=== PATIENT | female | born 1955 | race Caucasian/White ===

== ENCOUNTER 2017-04-13 08:04 | Day surgery (SDC) | payer OTHER ==
[~2017-04-13] VITALS: Ht 162.6 cm; Wt 98.7 kg
[2017-04-13] MEDS ORDERED: LISINOPRIL (09:33)
[2017-04-13] MEDS ORDERED: NORCO (09:33)
[2017-04-13 09:35] VITALS: Ht 162.6 cm; Wt 98.7 kg
[2017-04-13] MEDS ORDERED: LIDOCAINE 2% (SDV) 5 ML INJ ONE (09:49)
[2017-04-13] MEDS ORDERED: PROPOFOL 40 ML ONE (09:49)
[2017-04-13] MEDS ORDERED: SULFAMETHOXAZOLE (09:54)
[2017-04-13] MEDS ORDERED: TRIAMCINOLONE (09:54)
[2017-04-13] MEDS ORDERED: CEPHALEXIN (09:54)
[2017-04-13 10:35] VITALS: BP 145/82; PULSE 79; RESP 20
--- NOTE | 2017-04-13 11:13 | GILP ---
DATE OF PROCEDURE: 04/13/2017 PROCEDURE: Colonoscopy. PREOPERATIVE DIAGNOSIS: Screening colonoscopy to rule out colon polyps. POSTOPERATIVE DIAGNOSES: Moderate degree of diverticulosis noted all along the colon. No polyps, n o carcinoma noted. Minimal internal and minimal external hemorrhoids OF grade I noted. DESCRIPTION OF PROCEDURE: After informed written consent was obtained, the patient was asked to lie on the left lateral side. Intravenous anesthesia was given by SALES AND DISTRIBUTION CLERK. When the patient became somno lent, the Olympus video colonoscope was introduced into the rectum and scope was advanced all the wa y to the cecum. Entire colon was examined. Moderate degree of diverticulosis noted. There is no e vidence of diverticulitis. No evidence of neoplasm noted. Endoscope at this time was withdrawn fro m the cecum. On the way out, no new abnormalities detected except on retroflexion, minimal internal hemorrhoids and minimal external hemorrhoids were noted and the procedure was terminated. PLAN: Recommend repeat colonoscopy in 10 years. Dictated By: EDILBERTO WATSON/TARYN Conf#: [id number] DID#: [id number] CC: [facility]; EDILBERTO CONNER MD;*End*
[2017-04-13 11:20] VITALS: BP 130/72; RESP 20
== END 2017-04-13 11:46 | disposition home or self-care (01) ==
LOC: GIL 08:04
PROVIDERS: ATTEND Internal Medicine Gastroenterology
DX: Z12.11 Encounter for screening for malignant neoplasm of colon (principal); K57.90 Diverticulosis of intestine, part unspecified, without perforation or abscess without bleeding; K64.8 Other hemorrhoids; K64.4 Residual hemorrhoidal skin tags; I10 Essential (primary) hypertension; E66.9 Obesity, unspecified; Z68.37 Body mass index [BMI] 37.0-37.9, adult
CPT/HCPCS: 45378; Z7610

== ENCOUNTER 2017-06-02 12:53 | Inpatient (IN) | payer OTHER ==
[~2017-06-02] VITALS: Ht 162.6 cm; Wt 100.0 kg
[~2017-06-02 12:53] MED LIST: CEPHALEXIN; LISINOPRIL; NORCO; SULFAMETHOXAZOLE; TRIAMCINOLONE
[2017-06-02 12:54] VITALS: Ht 162.6 cm; Wt 100.0 kg
[2017-06-02] MEDS ORDERED: ASPIRIN 325 MG TAB PO STA (15:18)
[2017-06-02] MEDS ORDERED: NITROGLYCERIN 2% 1 GM OINT PKT TD STA (15:18)
[2017-06-02 15:33] LABS: BASOPHIL # 0.1 10^3/ul (0.0-0.1); BASOPHILS % 0.9 % (0.0-2.0); EOSINOPHILS # 0.3 10^3/ul (0.0-0.5); EOSINOPHILS % 3.9 % (0.0-7.0); HEMATOCRIT 44.8 % (37.0-47.0); HEMOGLOBIN 14.8 g/dl (12.0-16.0); LYMPHOCYTES # 2.4 10^3/ul (0.8-2.9); LYMPHOCYTES % 31.3 % (15.0-51.0); MEAN CORPUSCULAR HEMOGLOBIN 27.9 pg (29.0-33.0); MEAN CORPUSCULAR VOLUME 84.5 fl (82.0-101.0); MEAN PLATELET VOLUME 11.1 fl (7.4-10.4); MONOCYTE # 0.7 10^3/ul (0.3-0.9); MONOCYTES % 8.9 % (0.0-11.0); NEUTROPHIL # 4.3 10^3/ul (1.6-7.5); NEUTROPHILS % 54.9 % (39.0-77.0); PLATELET COUNT 243 10^3/UL (140-415); RED CELL DISTRIBUTION WIDTH 12.8 % (11.5-14.5); WHITE BLOOD COUNT 7.8 10^3/ul (4.8-10.8)
[2017-06-02 15:54] LABS: INR 0.93; PROTIME 12.5 Sec (12.2-14.2)
[2017-06-02 15:55] LABS: PARTIAL THROMBOPLASTIN TIME 29.6 Sec (25.0-35.0)
[2017-06-02 15:56] LABS: ANION GAP 19 (8-16); BLOOD UREA NITROGEN 13 mg/dl (7-20); CALCIUM 9.1 mg/dl (8.4-10.2); CARBON DIOXIDE 30 mmol/L (21-31); CHLORIDE 99 mmol/L (97-110); GLUCOSE 114 mg/dl (70-220); POTASSIUM 3.9 mmol/L (3.5-5.1); SODIUM 144 mmol/L (135-144)
--- NOTE | 2017-06-02 16:09 | ERA ---
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 The patient presents with chest pain for approximately 1 week. She describes it as left-sided. She has difficulty characterizing the pain but states that it feels like a heavy sensation. She first noted it during exercise class and towards the end of the class she started to have this chest pain. It lasted less than 1 hour. The patient again had symptoms just earlier today while she was working. 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 She states that it was not related to movement of her extremities her chest but it was related to exertion. She has 2 out of 10 pain currently. She denies any mid back pain, no pleuritic pain, no fevers or chills. She has not had cardiac workup in the past. ROS All systems reviewed and are negative except as per history of present illness. Medications Home Meds Reported Medications Lisinopril* (Lisinopril*) 10 Mg Tablet, 10 MG PO DAILY, #30 TAB 06/02/17 Discontinued Reported Medications [Cephalexin] No Conflict Check 04/13/17 [Triamcinolone] No Conflict Check 04/13/17 [Sulfamethoxazole] No Conflict Check 04/13/17 [[place]] No Conflict Check 04/13/17 [Lisinopril] No Conflict Check 04/13/17 Allergies Allergies: Coded Allergies: No Known Allergy (Unverified , 06/02/17) PMhx/Soc History of Surgery: Yes (HYSTERECTOMY) Anesthesia Reaction: Yes Hx Neurological Disorder: No Hx Respiratory Disorders: Yes (ASTHMA) Hx Cardiac Disorders: Yes (HTN) Hx Psychiatric Problems: No Hx Miscellaneous Medical Probl: No Hx Alcohol Use: No Hx Substance Use: No Hx Tobacco Use: No Smoking Status: Never smoker FmHx Family History: No diabetes Physical Exam Vitals Vital Signs Date Time Temp Pulse Resp B/P Pulse Ox O2 Delivery O2 Flow Rate FiO2 06/02/17 16:18 68 12 119/74 99 Room Air 06/02/17 12:54 98.6 74 20 147/109 97 Physical Exam General: Well developed, well nourished, no acute distress Head: Normocephalic, atraumatic. Eyes: Pupils equally reactive, EOM intact ENT: Moist mucous membranes Neck: Supple, no lymphadenopathy Respiratory: Lungs clear bilaterally, no distress Cardiovascular: RRR, no murmurs, rubs, or gallops Abdominal: Soft, non-tender, non-distended, no peritoneal signs : Deferred MSK: No edema, no unilateral swelling, 5/5 strength Neurologic: Alert and oriented, moving all extremities, normal speech, no focal weakness, no cerebellar signs Skin: No rash Psych: Normal mood Result Diagram: 06/02/17 1515 06/02/17 1515 Results 24 hrs Laboratory Tests Test 06/02/17 15:15 White Blood Count 7.810^3/ul Red Blood Count 5.3010^6/ul Hemoglobin 14.8g/dl Hematocrit 44.8% Mean Corpuscular Volume 84.5fl Mean Corpuscular Hemoglobin 27.9pg Mean Corpuscular Hemoglobin Concent 33.0g/dl Red Cell Distribution Width 12.8% Platelet Count 59973^3/UL Mean Platelet Volume 11.1fl Neutrophils % 54.9% Lymphocytes % 31.3% Monocytes % 8.9% Eosinophils % 3.9% Basophils % 0.9% Nucleated Red Blood Cells % 0.0/100WBC Neutrophils # 4.310^3/ul Lymphocytes # 2.410^3/ul Monocytes # 0.710^3/ul Eosinophils # 0.310^3/ul Basophils # 0.110^3/ul Nucleated Red Blood Cells # 0.010^3/ul Prothrombin Time 12.5Sec Prothrombin Time Ratio 1.0 INR International Normalized Ratio 0.93 Activated Partial Thromboplast Time 29.6Sec Sodium Level 144mmol/L Potassium Level 3.9mmol/L Chloride Level 99mmol/L Carbon Dioxide Level 30mmol/L Anion Gap 19 Blood Urea Nitrogen 13mg/dl Creatinine 0.70mg/dl Glucose Level 114mg/dl Calcium Level 9.1mg/dl Troponin I < 0.012ng/ml Current Medications Medications (Trade) Dose Ordered Sig/Jeremi Route PRN Reason Start Time Stop Time Status Last Admin Dose Admin Aspirin (Aspirin) 325 mg ONCE STAT PO 06/02/17 15:18 06/02/17 15:20 DC 06/02/17 15:23 Nitroglycerin (Nitroglycerin 2% Oint) 1 inch ONCE STAT TD 06/02/17 15:18 8/12/17 15:20 DC 06/02/17 15:23 Ondansetron HCl (Zofran Inj) 4 mg ER BRIDGE PRN IV NAUSEA AND/OR VOMITING 06/02/17 17:00 06/03/17 16:59 Acetaminophen (Tylenol Tab) 650 mg ER BRIDGE PRN PO MILD PAIN/FEVER 06/02/17 17:00 06/03/17 16:59 IV Flush (NS 3 ml) 3 ml PER PROTOCOL IV 06/02/17 18:00 UNV Acetaminophen (Tylenol Tab) 650 mg Q6H PRN PO PAIN LEVEL 1-3 OR FEVER 06/02/17 18:00 UNV Acetaminophen/ Hydrocodone Bitart ([place] (5/325)) 1 tab Q6H PRN PO PAIN LEVEL 4-6 06/02/17 18:00 UNV Morphine Sulfate (morphine) 2 mg Q4H PRN IV PAIN LEVEL 7-10 06/02/17 18:00 UNV Bisacodyl (Dulcolax) 5 mg DAILY PRN PO CONSTIPATION 06/02/17 18:00 UNV Famotidine (Pepcid) 20 mg Q12 PO 06/02/17 21:00 UNV Enoxaparin Sodium (Lovenox) 40 mg DAILY SC 06/03/17 09:00 UNV Lisinopril (Zestril) 10 mg DAILY PO 06/03/17 09:00 UNV Hydralazine HCl (Apresoline) 10 mg Q6H PRN IV SBP>160 06/02/17 18:00 UNV Procedures/MDM EKG, MONITORS, & DIAGNOSTIC IMAGING: EKG: I reviewed and interpreted a 12-lead EKG. Rhythm: Normal sinus rhythm Ectopy: None Intervals: No abnormalities ST segments: No elevations or depressions T waves: No contiguous inversions Repeat EKG: EKG: I reviewed and interpreted a 12-lead EKG. Rhythm: Normal sinus rhythm Ectopy: None Intervals: No abnormalities ST segments: No elevations or depressions T waves: No contiguous inversions Chest x-ray: I reviewed and interpreted a 1 view of the chest Mediastinum: No enlargement Cardiac silhouette: No cardiomegaly Airspace: Clear lung rahman bilaterally without evidence of pneumothorax Bones: No evidence of fracture LAB INTERPRETATION: Negative troponin MEDICAL DECISION MAKING: The patient's history, physical exam and clinical presentation is concerning for possible cardiogenic etiology and acute coronary syndrome. Based on the patient's clinical exam and history and risk factors, I have a much lower clinical concern for pulmonary embolism, acute aortic dissection, pneumothorax, pneumonia, cardiac tamponade HEART Score: 4 MACE Rate: 16.6% Shared Decision Making: We had a conversation regarding risk stratification, MACE rate, and the risks, benefits, alternatives of disposition planning options. Disposition planning: Given that the patient has exertional symptoms, has never been tested before and is a 61-year-old female I would strongly recommend hospitalization to rule out ACS. The patient is agreeable. ER COURSE: Aspirin and nitro provided. Patient is chest pain-free. I kept the patient and/or family informed of laboratory and diagnostic imaging results throughout the emergency room course. DISPOSITION PLAN: Telemetry admission for management of chest pain to rule out acute coronary syndrome, risk stratify the patient and evaluate the need for provocative testing versus angiogram. CONSULTATION: Accepting care team and consultations: I discussed the current laboratory data, diagnostic imaging and emergency care provided. Admitting team: Dr. Cohen Admitting team indication: Insurance directed Departure Diagnosis: Primary Impression: Chest pain Qualified Code: R07.9 - Chest pain, unspecified type Condition: Stable KUMAR SILVA MD Jun 02, 2017 16:09
[2017-06-02 16:10] LABS: TROPONIN-I < 0.012 ng/ml (0.00-0.12)
[2017-06-02] MEDS ORDERED: ACETAMINOPHEN 325 MG TAB PO PRN ×2 (17:00→18:00)
[2017-06-02] MEDS ORDERED: ONDANSETRON 4 MG INJ IV PRN (17:00)
[2017-06-02] MEDS ORDERED: LISI10TA2 PO (17:16)
--- NOTE | 2017-06-02 17:18 | RADRPT ---
PROCEDURE: Portable chest x-ray. CLINICAL INDICATION: 61-year-old female. Chest pain.. TECHNIQUE: Portable AP view of the chest. COMPARISON: None. FINDINGS: Cardiomediastinal contours are normal. Lungs are clear.. Negative for pleural effusion or pneumothorax.. No acute bony abnormality. IMPRESSION: Negative for evidence of acute chest process. RPTAT: HCTS Physician Tyrell Date Time Electronically viewed and signed by Carlitos Macias Physician on 06/02/2017 17:18 CS/
--- NOTE | 2017-06-02 17:50 | HP ---
Date/Time of Note Date/Time of Note DATE: 06/02/17 TIME: 17:46 Assessment/Plan VTE Prophylaxis VTE Prophylaxis Intervention: LMWH Lines/Catheters IV [facility]from [facility] [place] Assessment/Plan Chief Complaint/Hosp Course 1. Chest pain. To rule out acute coronary syndrome. Serial troponins will be obtained. A 2D cardiogram will be obtained to evaluate the left ventricular ejection fraction to evaluate for any wall motion abnormalities. A cardiology consult will be obtained. The patient will be started on aspirin. 2. Essential hypertension. The patient will be resumed on her home antihypertensives. The patient will also be started on PRN antihypertensives for any systolic blood pressure readings greater than 160 mmHg. 3. Obesity. BMI of 37.8 kg/m. Weight reduction will be advised. A fasting lipid panel and hemoglobin A1c will be obtained. Plan: The patient will be admitted to inpatient telemetry floor. The patient will be started on a low-cholesterol diet. The patient will be started on DVT prophylaxis and gastrointestinal prophylaxis. The patient will remain a full code. Activities will be as tolerated. The rest of the patient's management will be based on the clinical course and the results of diagnostic studies. Based on the patient's clinical presentation, she most probably requires at least one midnight's stay for further management and evaluation of her clinical presentation. The case and management of this patient was fully discussed with . Problems: HPI/ROS Admit Date/Time Admit Date/Time Hx of Present Illness Reason for admission: Chest pain Consultants 1. Tae Carmen MD, Cardiology. This is a 61-year-old female with past medical history of essential hypertension and obesity who came to the emergency room with chief complaint of left-sided chest pain with radiation to the left arm that has been going on for the past 1 week. Patient verbalized the pain as heaviness. The patient verbalized that the pain started after she had a Zohreh class at a local gym. The patient denied any obvious injuries during the Zohreh class. The patient denied any associated nausea, vomiting, or diaphoresis. The patient denied any dizziness or headache. Patient denied any dyspnea. The patient denied any fevers or chills. In the emergency room, patient was treated with oral aspirin and transdermal nitroglycerin. ROS Constitutional: no complaints Eyes: no complaints ENT: no complaints Respiratory: no complaints Cardiovascular: chest pain Gastrointestinal: no complaints Genitourinary: no complaints Musculoskeletal: no complaints Skin: no complaints Neurologic: no complaints Endocrine: no complaints Lymphatic: no complaints Psychological: no complaints Immunologic: no complaints PMH/Family/Social Past Medical History Medical History: hypertension Past Surgical History Past Surgical Hx: other (Hysterectomy) Family History Significant Family History: heart disease (Mother of heart attack when she was 65 years old) Social History Alcohol Use: none Smoking Status: Never smoker Drug Use: none Exam/Review of Systems Vital Signs Vitals Vital Signs Date Time Temp Pulse Resp B/P Pulse Ox O2 Delivery O2 Flow Rate FiO2 06/02/17 16:18 68 12 119/74 99 Room Air 06/02/17 12:54 98.6 Exam Exam General: Obese 61 year-old female lying in bed in no apparent distress. HEENT: Normocephalic, atraumatic. Eyes: Anicteric sclerae, conjunctivae clear. ENT: Nasal septum midline, oral mucosa moist. Neck supple, no JVD noticed. Respiratory: Bilaterally clear breath sounds. No use of accessory muscles of respiration. No adventitious breath sounds. Cardiovascular: S1, S2 heard. No murmurs or gallops. Abdomen: Soft, nontender, and nondistended. Bowel sounds positive in all 4 quadrants. Genitourinary: Deferred. Extremities: No cyanosis, no clubbing. Bilateral lower extremity obese. No pitting edema. Peripheral pulses palpable. Neurologic: Cranial nerves II through XII grossly intact. The patient is awake, alert, and oriented. Skin: Normal skin turgor. No skin rashes. Labs Result Diagram: 06/02/17 1515 06/02/17 1515 Medications Medications Current Medications Acetaminophen (Tylenol Tab) 650 mg Q6H PRN PO PAIN LEVEL 1-3 OR FEVER; Start at 18:00; Status UNV Acetaminophen/ Hydrocodone Bitart ([place] (5/325)) 1 tab Q6H PRN PO PAIN LEVEL 4 -6; Start 06/02/17 at 18:00; Status UNV Morphine Sulfate (morphine) 2 mg Q4H PRN IV PAIN LEVEL 7-10; Start 06/02/17 at 18:00; Status UNV Bisacodyl (Dulcolax) 5 mg DAILY PRN PO CONSTIPATION; Start 06/02/17 at 18:00; Status UNV Famotidine (Pepcid) 20 mg Q12 PO ; Start 06/02/17 at 21:00; Status UNV Enoxaparin Sodium (Lovenox) 40 mg DAILY SC ; Start 06/03/17 at 09:00; Status UNV Lisinopril (Zestril) 10 mg DAILY PO ; Start 06/03/17 at 09:00; Status UNV Hydralazine HCl (Apresoline) 10 mg Q6H PRN IV SBP>160; Start 06/02/17 at 18:00 ; Status UNV Procedures Procedures CXR No acute cardiopulmonary findings. 12 Lead EKG Normal sinus rhythm. Right bundle branch block. JUDITH BENNETT NP Jun 02, 2017 17:50
[2017-06-02] MEDS ORDERED: NACL 0.9% 3 ML SYG IV SCH (18:00)
[2017-06-02] MEDS ORDERED: morphine 2 MG INJ IV PRN (18:00)
[2017-06-02] MEDS ORDERED: hydrALAzine 20 MG INJ IV PRN (18:00)
[2017-06-02] MEDS ORDERED: BISACODYL (EC) 5 MG TAB PO PRN (18:00)
[2017-06-02] MEDS ORDERED: HYDROCODONE/APAP (5/325) TAB PO PRN (18:00)
[2017-06-02 20:51] VITALS: BP_SYST 138; BP_SYST 166; BP_DIAS 65; BP_DIAS 77; RESP 16
[2017-06-02 20:52] VITALS: PULSE 66
[2017-06-02] MEDS: FAMOTIDINE 20 MG TAB PO SCH (21:04)
[2017-06-02 22:45] LABS: CREATINE KINASE 122 IU/L (23-200)
[2017-06-02 22:56] LABS: CK-MB 1.81 ng/ml (0.0-2.4); TROPONIN-I < 0.012 ng/ml (0.00-0.12)
[2017-06-02 23:12] VITALS: TEMP 98.6
[2017-06-03] VITALS (9 sets, daily range): BP systolic 127–154; BP diastolic 13–72; PULSE 63–78; RESP 17–19
[2017-06-03 03:16] LABS: BASOPHIL # 0.1 10^3/ul (0.0-0.1); BASOPHILS % 0.6 % (0.0-2.0); EOSINOPHILS # 0.2 10^3/ul (0.0-0.5); EOSINOPHILS % 2.4 % (0.0-7.0); HEMATOCRIT 42.8 % (37.0-47.0); HEMOGLOBIN 13.8 g/dl (12.0-16.0); LYMPHOCYTES # 2.4 10^3/ul (0.8-2.9); LYMPHOCYTES % 24.8 % (15.0-51.0); MEAN CORPUSCULAR HEMOGLOBIN 27.2 pg (29.0-33.0); MEAN CORPUSCULAR HGB CONC 32.2 g/dl (32.0-37.0); MEAN CORPUSCULAR VOLUME 84.3 fl (82.0-101.0); MONOCYTE # 0.7 10^3/ul (0.3-0.9); MONOCYTES % 7.2 % (0.0-11.0); NEUTROPHIL # 6.3 10^3/ul (1.6-7.5); NEUTROPHILS % 64.8 % (39.0-77.0); PLATELET COUNT 221 10^3/UL (140-415); RED BLOOD COUNT 5.08 10^6/ul (4.20-5.40); WHITE BLOOD COUNT 9.7 10^3/ul (4.8-10.8)
[2017-06-03 03:35] LABS: CREATINE KINASE 118 IU/L (23-200)
[2017-06-03 03:37] LABS: CHOLESTEROL 183 mg/dl (100-200); HDL CHOLESTEROL 45 mg/dl (35-98); MAGNESIUM 2.3 mg/dl (1.7-2.5); PHOSPHORUS 3.6 mg/dl (2.5-4.9); TRIGLYCERIDES 111 mg/dl (0-149)
[2017-06-03 03:42] LABS: ALBUMIN 4.4 g/dl (3.3-4.9); ALBUMIN/GLOBULIN RATIO 1.37; BILIRUBIN,INDIRECT 0.7 mg/dl (0-1.1); BILIRUBIN,TOTAL 0.7 mg/dl (0.2-1.3); CREATININE 0.77 mg/dl (0.44-1.00); POTASSIUM 4.6 mmol/L (3.5-5.1); TOTAL PROTEIN 7.6 g/dl (6.1-8.1)
[2017-06-03 03:49] LABS: CK-MB 1.82 ng/ml (0.0-2.4)
[2017-06-03 03:58] LABS: TROPONIN-I < 0.012 ng/ml (0.00-0.12)
[2017-06-03] MEDS: FAMOTIDINE 20 MG TAB PO SCH (08:38)
[2017-06-03] MEDS ORDERED: ASPIRIN (EC) 81 MG TAB PO SCH (09:00)
[2017-06-03] MEDS ORDERED: ENOXAPARIN 40 MG/0.4 ML SYG SC SCH (09:00)
[2017-06-03] MEDS ORDERED: LISINOPRIL 10 MG TAB PO SCH (09:00)
--- NOTE | 2017-06-03 10:20 | CONS ---
Date/Time of Note Date/Time of Note DATE: 06/03/17 TIME: 10:18 Assessment/Plan Assessment/Plan Additional Assessment/Plan Atypical chest pain Hypertension Obesity she has been ruled out for ACS with serial negative troponin's chest pain free Increased Lisinopril Continue Pepcid Continue Lovenox echo pending Consultation Date/Type/Reason Admit Date/Time Jun 02, 2017 at 16:52 Initial Consult Date Exam/Review of Systems Vital Signs Vitals Vital Signs Date Time Temp Pulse Resp B/P Pulse Ox O2 Delivery O2 Flow Rate FiO2 06/03/17 08:06 63 06/03/17 07:26 97.7 18 140/72 96 06/02/17 23:12 Room Air Exam Constitutional: alert, oriented, well developed Neck: non-tender, supple Respiratory: clear to auscultation Cardiovascular: regular rate and rhythm Gastrointestinal: nl liver, spleen, non-tender, soft Extremities: normal pulses Results Result Diagram: 06/03/17 0306 06/03/17 0306 Results 24 hrs Laboratory Tests Test 06/02/17 15:15 06/02/17 21:45 06/03/17 03:06 White Blood Count 7.8 9.7 # Red Blood Count 5.30 5.08 Hemoglobin 14.8 13.8 Hematocrit 44.8 42.8 Mean Corpuscular Volume 84.5 84.3 Mean Corpuscular Hemoglobin 27.9 L 27.2 L Mean Corpuscular Hemoglobin Concent 33.0 32.2 Red Cell Distribution Width 12.8 13.0 Platelet Count 243 221 Mean Platelet Volume 11.1 H 11.0 H Neutrophils % 54.9 64.8 Lymphocytes % 31.3 24.8 Monocytes % 8.9 7.2 Eosinophils % 3.9 2.4 Basophils % 0.9 0.6 Nucleated Red Blood Cells % 0.0 0.0 Neutrophils # 4.3 6.3 Lymphocytes # 2.4 2.4 Monocytes # 0.7 0.7 Eosinophils # 0.3 0.2 Basophils # 0.1 0.1 Nucleated Red Blood Cells # 0.0 0.0 Prothrombin Time 12.5 Prothrombin Time Ratio 1.0 INR International Normalized Ratio 0.93 Activated Partial Thromboplast Time 29.6 Sodium Level 144 140 Potassium Level 3.9 4.6 Chloride Level 99 104 Carbon Dioxide Level 30 28 Anion Gap 19 H 13 Blood Urea Nitrogen 13 13 Creatinine 0.70 0.77 Glucose Level 114 99 Hemoglobin A1c 5.7 Calcium Level 9.1 9.0 Troponin I < 0.012 < 0.012 < 0.012 Thyroid Stimulating Hormone (TSH) 1.600 Free Thyroxine 0.88 Creatine Kinase 122 118 Creatine Kinase Index 1.5 1.5 Creatinine Kinase MB (Mass) 1.81 1.82 Phosphorus Level 3.6 Magnesium Level 2.3 Total Bilirubin 0.7 Direct Bilirubin 0.00 Indirect Bilirubin 0.7 Aspartate Amino Transf (AST/SGOT) 24 Alanine Aminotransferase (ALT/SGPT) 42 Alkaline Phosphatase 62 Total Protein 7.6 Albumin 4.4 Globulin 3.20 Albumin/Globulin Ratio 1.37 Triglycerides Level 111 Cholesterol Level 183 LDL Cholesterol, Calculated 116 HDL Cholesterol 45 Cholesterol/HDL Ratio 4.0 Medications Medications Current Medications Acetaminophen (Tylenol Tab) 650 mg Q6H PRN PO PAIN LEVEL 1-3 OR FEVER; Start at 18:00 Acetaminophen/ Hydrocodone Bitart ([place] (5/325)) 1 tab Q6H PRN PO PAIN LEVEL 4 -6; Start 06/02/17 at 18:00 Morphine Sulfate (morphine) 2 mg Q4H PRN IV PAIN LEVEL 7-10; Start 06/02/17 at 18:00 Bisacodyl (Dulcolax) 5 mg DAILY PRN PO CONSTIPATION; Start 06/02/17 at 18:00 Famotidine (Pepcid) 20 mg Q12 PO Last administered on 06/03/17 08:38; Admin Dose 20 MG; Start 06/02/17 at 21:00 Enoxaparin Sodium (Lovenox) 40 mg DAILY SC Last administered on 06/03/17 08:45 ; Admin Dose 40 MG; Start 06/03/17 at 09:00 Lisinopril (Zestril) 10 mg DAILY PO Last administered on 06/03/17 08:39; Admin Dose 10 MG; Start 06/03/17 at 09:00 Hydralazine HCl (Apresoline) 10 mg Q6H PRN IV SBP>160; Start 06/02/17 at 18:00 Aspirin (Halfprin) 81 mg DAILY PO Last administered on 06/03/17 08:38; Admin Dose 81 MG; Start 06/03/17 at 09:00 YANN NAVA M.D. Jun 03, 2017 10:20
--- NOTE | 2017-06-03 11:14 | CONS ---
DATE OF ADMISSION: 06/02/2017 DATE OF CONSULTATION: 06/03/2017 REASON FOR CONSULTATION: Chest pain. HISTORY OF PRESENT ILLNESS: Patient is a 61-year-old female who comes in with chest pain on and off for the past 1 week, relieved with Advil. Denies shortness of breath, dizziness, syncope or palpitations. Denies nausea, vomiting. Denies fever, chills or rigors. She has no prior history of coronary artery disease or myocardial infarction. Denies history of dyslipidemia or diabetes mellitus. PAST MEDICAL HISTORY: 1. Hypertension. 2. Obesity. SOCIAL HISTORY: No smoking, alcohol, or recreational drugs. ALLERGIES: NONE. CURRENT MEDICATIONS: Lovenox, lisinopril, aspirin, Pepcid. REVIEW OF SYSTEMS: Unremarkable except as mentioned in HPI. PHYSICAL EXAMINATION: VITAL SIGNS: Temperature is 98.1, heart rate of 58, blood pressure 138/65, mmHg, breathing at 16, saturating 95 percent. GENERAL: Patient awake, alert, in no apparent distress. NECK: No JVD or carotid bruit. HEART: Regular rate and rhythm. No murmur, rub, or gallop. CHEST: Clear to auscultation. ABDOMEN: Soft. Bowel sounds are present. There is no organomegaly. EXTREMITIES: No pedal edema. Pedal pulses are felt bilaterally. LABORATORY: Sodium 144, potassium 3.9, chloride 99, CO2 30, BUN of 13, creatinine 0.7. Troponin first set is 0.01. TSH 1.6, free T4 0.88. Review of 12 lead EKG shows normal sinus rhythm with ventricular rate of 60 beats per minute with normal AL, normal QRS and normal QT intervals, with incomplete right bundle branch block. Chest x-ray shows no congestion or infiltrate. ASSESSMENT AND PLAN: A 61-year-old female with atypical with: 1. Atypical chest pain. 2. Hypertension. 3. Diabetes mellitus. Review of 12 lead EKG shows normal sinus rhythm with no acute ST- T wave changes. First set of troponin has been negative. Blood pressure is controlled. Chest pain is most likely musculoskeletal in nature since it is relieved by taking Advil. RECOMMENDATION: 1. Trend troponins. 2. Echocardiogram to assess for systolic function and rule out for pulmonary hypertension, pericardial disease. 3. Continue lisinopril. 4. Continue GI and DVT prophylaxis. Dictated By: Tae Carmen MD /marko/nestor /Document#: [id number]
--- NOTE | 2017-06-03 14:48 | PDOCDIS ---
Discharge Instructions DIAGNOSIS Discharge Diagnosis Atypical chest pain. Essential hypertension. CONDITION Patient Condition: Stable HOME CARE INSTRUCTIONS: Diet Instructions: Low Fat /Cholesterol OTHER ORDERS: Other Orders: 1. Take medications as per prescription. 2. Regular, preferably low cholesterol diet. 3. Resume activities as tolerated. 4. Follow-up with your PCP in 1 week. JUDITH BENNETT NP Jun 03, 2017 14:48
[2017-06-03] MEDS ORDERED: FAMO20TA18 PO (14:49)
[2017-06-03] MEDS ORDERED: LISI20TA11 PO (14:49)
--- NOTE | 2017-06-03 15:15 | RADRPT ---
Echocardiogram Report Patient Name: PATRICIA LOUIE Gender: Female Date: 1955 Study Date: 03-Jun-2017 Joiner Apprentice: Jono Galdamez [facility] Location: [id number] Ref. Physician: JUDITH BENNETT Quality: Adequate Procedures: Transthoracic echocardiogram with complete 2D, M-Mode, and doppler examination. Indications: Chest Pain. 2D/M Mode Doppler Measurement Value Normal Ranges Measurement Value Normal Ranges LVIDd 2D 4.3 3.5 - 5.6 cm AV Peak Luis 1.8 m/sec LVIDs 2D 2.9 2.1 - 4.1 cm AV Peak PG 13.0 mmHg FS 2D 33.3 % LVOT Peak Luis 1.6 m/sec LVPWd 2D 1.2 0.6 - 1.1 cm LVOT Peak PG 10.0 mmHg IVSd 2D 1.1 0.6 - 1.1 cm MV E Peak Luis 1.1 m/sec IVS/LVPW 2D 1.0 MV A Peak Luis 1.1 m/sec AoR Diam 2D 2.7 2.0 - 3.7 cm MV E/A 1.0 LA/Ao 2D 1 0 - 1 MV Decel Time 208 msec EDV 2D 79.0 cm3 MV E/A 1.0 ESV 2D 23.4 cm3 LA Dimen 2D 3.9 2.3 - 4.0 cm Findings Left Ventricle: Normal left ventricular systolic function. Normal left ventricular cavity size. Normal left ventricular wall thickness. Ejection fraction is visually estimated at 65 %. Tissue Doppler/Mitral Doppler indices are within normal limits. Right Ventricle: Normal right ventricular size. Normal right ventricular systolic function. Left Atrium: The left atrium is normal in size. Right Atrium: The right atrium is normal in size. Mitral Valve: Mild mitral leaflet calcification. Mild mitral annular calcification. Trace mitral regurgitation. Aortic Valve: Normal appearance of the aortic valve. No significant aortic stenosis or insufficiency. Tricuspid Valve: Normal appearance of the tricuspid valve. Unable to obtain RVSP due to minimal presence of tricuspid regurgitation. There is trace tricuspid regurgitation. Pulmonic Valve: Pulmonic valve not well visualized. There is trace pulmonic regurgitation. Pericardium: Normal pericardium with no significant pericardial effusion. Aorta: Normal aortic root. IVC: Normal size and normal respiratory collapse consistent with normal right atrial pressure. Conclusions 1.Normal left ventricular systolic function. Normal left ventricular cavity size. Normal left ventricular wall thickness. Ejection fraction is visually estimated at 65 %. Tissue Doppler/Mitral Doppler indices are within normal limits. 2.Normal right ventricular size. Normal right ventricular systolic function. 3.Mild mitral leaflet calcification. Mild mitral annular calcification. Trace mitral regurgitation. 4.Normal appearance of the aortic valve. No significant aortic stenosis or insufficiency. 5.Normal appearance of the tricuspid valve. Unable to obtain RVSP due to minimal presence of tricuspid regurgitation. There is trace tricuspid regurgitation. 6.Normal pericardium with no significant pericardial effusion. Electronically Signed By: Tae Carmen 03-Jun-2017 15:13:58 -0700 Patient Name: PATRICIA LOUIE Study Date: 03-Jun-2017 [id number]
[2017-06-04] MEDS ORDERED: LISINOPRIL 20 MG TAB PO SCH (09:00)
--- NOTE | 2017-06-04 17:53 | DS ---
Date/Time of Note Date/Time of Note DATE: 06/04/17 TIME: 17:53 Discharge Summary Admission/Discharge Info Admit Date/Time Jun 02, 2017 at 16:52 Discharge Date/Time Jun 03, 2017 at 16:27 Discharge Diagnosis 1. Atypical chest pain. 2. Essential hypertension. 3. Obesity. Patient Condition: Stable Consults 1. Tae Carmen MD, Cardiology. Procedures 2D Echocardiogram Conclusions 1. Normal left ventricular systolic function. Normal left ventricular cavity size. Normal left ventricular wall thickness. Ejection fraction is visually estimated at 65 %. Tissue Doppler/Mitral Doppler indices are within normal limits. 2. Normal right ventricular size. Normal right ventricular systolic function. 3. Mild mitral leaflet calcification. Mild mitral annular calcification. Trace mitral regurgitation. 4. Normal appearance of the aortic valve. No significant aortic stenosis or insufficiency. 5. Normal appearance of the tricuspid valve. Unable to obtain RVSP due to minimal presence of tricuspid regurgitation. There is trace tricuspid regurgitation. 6. Normal pericardium with no significant pericardial effusion. CXR IMPRESSION: Negative for evidence of acute chest process. Hx of Present Illness Reason for admission: Chest pain Consultants 1. Tae Carmen MD, Cardiology. This is a 61-year-old female with past medical history of essential hypertension and obesity who came to the emergency room with chief complaint of left-sided chest pain with radiation to the left that has been going on for the past 1 week. Patient verbalized the pain as heaviness. The patient verbalized that the pain started after she had a Zohreh class at a local gym. The patient denied any obvious injuries during the Zohreh class. The patient denied any associated nausea, vomiting, diaphoresis. The patient denied any dizziness or headache. Patient denied any dyspnea. The patient denied any fevers or chills. In the emergency room, patient was treated with oral aspirin and transdermal nitroglycerin. Hospital Course The patient was admitted to inpatient telemetry floor. Serial troponins and a 2D echocardiogram was ordered. A Cardiology consult was ordered. The patient's serial troponins remained negative. The patient's 2D echo showed preserved LVEF. The patient was ruled out for any ACS. The patient has underlying essential hypertension. She was maintained on antihypertensives. The patient's antihypertensive dosing was increased by the hosiery looper. The patient's hemoglobin A1C was within normal limits. The patient's fasting lipid panel was satisfactory. In fact, the patient's chest was resolved over the course of her hospital stay. The patient was cleared by Cardiology to be discharged home. Discharge Instructions 1. Take medications as per prescription. 2. Regular, preferably low cholesterol diet. 3. Resume activities as tolerated. 4. Follow-up with your PCP in 1 week. The patient verbalized understanding of her discharge instructions. The case and management of this patient was fully discussed with . Home Meds Active Scripts Lisinopril* (Lisinopril*) 20 Mg Tablet, 20 MG PO DAILY, #30 TAB Prov:JUDITH BENNETT NP 06/03/17 Famotidine* (Famotidine*) 20 Mg Tablet, 20 MG PO Q12, #60 TAB Prov:JUDITH BENNETT NP 06/03/17 Discontinued Reported Medications Lisinopril* (Lisinopril*) 10 Mg Tablet, 10 MG PO DAILY, #30 TAB 06/02/17 [Cephalexin] No Conflict Check 04/13/17 [Triamcinolone] No Conflict Check 04/13/17 [Sulfamethoxazole] No Conflict Check 04/13/17 [[place]] No Conflict Check 04/13/17 [Lisinopril] No Conflict Check 04/13/17 Follow-up Plan Follow-up with PCP in 1 week. Primary Care Provider [facility], [place], [facility] Time spent on discharge: > 30 minutes JUDITH BENNETT NP Jun 04, 2017 17:53
--- NOTE | 2017-06-08 13:35 | RADRPT ---
Vent Rate: 64 bpm RR Interval: 0 msec GA Interval: 164 msec QRS Duration: 90 msec QT Interval: 426 msec QTC Interval: 439 msec P-R-T [place]: 56 - 56 - 53 degrees Normal sinus rhythm Left atrial enlargement Cannot rule out anterior infarct, age undetermined Abnormal ECG Electronically Signed By: Bean Velazquez [id number]
== END 2017-06-03 16:27 | disposition home or self-care (01) | DRG 313 ==
LOC: E/R 12:53 → MS4 16:52
PROVIDERS: ADMIT Internal Medicine; ATTEND Internal Medicine
DX: R07.9 Chest pain, unspecified (principal); I10 Essential (primary) hypertension; E11.9 Type 2 diabetes mellitus without complications
CPT/HCPCS: 36415; 71010; 80048; 80053; 80061; 82550; 82553; 83036; 83735; 84100; 84439; 84443; 84484; 85025; 85610; 85730; 93005; 93306; J1650

== ENCOUNTER 2017-06-08 14:20 | Outpatient (CLI) | payer OTHER ==
[~2017-06-08] VITALS: Ht 162.6 cm; Wt 99.5 kg
[~2017-06-08 14:20] MED LIST changes: +FAMO20TA18 PO; +LISI10TA2 PO; +LISI20TA11 PO
[2017-06-08 14:32] VITALS: Ht 162.6 cm; Wt 99.5 kg
[2017-06-08 14:33] VITALS: BP 175/83; PULSE 71; RESP 18
--- NOTE | 2017-06-08 15:18 | PN ---
Date/Time of Note Date/Time of Note DATE: 06/08/17 TIME: 15:11 Outpatient Progress Note Chief Complaint Hypertension/chest pain/obesity/neuropathy HPI Hypertension/no headache or dizziness or lightheadedness, no blood in the urine , no impaired vision, no local focal weakness, blood pressure elevated, patient was taking lisinopril 10 mg daily, while patient was in the hospital it was increased to 20 mg daily, still blood pressure is 175 systolic, Chest pain/patient was recently admitted with chest pain, at present patient does not have any chest pain, no PND orthopnea, Obesity patient morbidly obese, patient has no history of any hypothyroidism, Neuropathy/patient complains of tingling and numbness in both hands and feet, got worse since hospitalization, no receiving hypothyroidism, or B12 deficiency, Review of Systems Const: No Fever, no chills, no Wt. loss, no Fatigue, normal appetite, no diaphoresis. Slightly obese, Eyes: No pain, no discharge, no redness, no visual change, no foreign body. ENT: No pain, no bleeding, no congestion, no sore throat, no dysphagia, no discharge or rhinitis. Lymph: No adenopathy, no tender nodes, no lymphedema. Resp: No SOB, no cough, no sputum, no wheezing, no chest pain. CV: No chest pain, no palpitaions, no REID, no PND, no edema. GI: Normal appetite, no pain, no nausea, no vomiting, no diarrhea, no blood, no constipation. : No frequency, no urgency, no dysuria, no hematuria, no flank pain, no discharge, no bleeding. Musc: Left shoulder pain, upper and lower back pain, no neck pain, no knee pain , slight restricted ROM on both the shoulder, patient also has pain in the back muscle, and slight tenderness, difficulty in movements of both the hands and shoulder,. Skin: No rash, no skin lesions, no erythema, no laceration, no bruising, no pruritus. Neuro: No VELARDE, no dizziness, no syncope, no seizure, no focal-weakness. Endo: No polyuria, no polydypsia, no dry-skin, no temp-intolerance. Psych: No hallucinations, no depression, no anxiety, no suicidal ideation. Ext: No edema, no pain, no ulcer, no weakness. Physical Exam Vital Signs Date Time Temp Pulse Resp B/P Pulse Ox O2 Delivery O2 Flow Rate FiO2 06/08/17 14:33 98.2 71 18 175/83 95 Room Air General Appearance: A 61 year-old female who appears well-developed, well- nourished, in no acute distress. HEENT: Head normocephalic, atraumatic. Pupils equal, round, reactive to light and accommodate. Sclerae are no jaundice. Nasal turbinates pink without erythema or nasal discharge. Mucous membranes pink and moist without lesions. Oropharynx clear without any exudate or discharge. NECK: Supple. Trachea midline, No thyromegaly, No cervical lymphadenopathy, No mass, No carotid bruits, No JVD, Carotid pulses 2+ bilaterally. PULMONARY: Clear to auscultaion bilaterally, No retractions, Chest expansion symmetric bilaterally, no rales, no ronchi, no dulness on percussion. CARDIAC: Normal SI and S2, Regular rate and rythm, no murmur, gallop, or rub. GASTROINTESTINAL: Abdomen is soft, non-tender, Non Rigid, No distention, Positive bowel sounds x4 quadrants, Liver normal. SKIN: Warm, dry, no rash, no bruise, no echmosis. EXTREMITIES: Bilateral lower extremities normal, no edema, no phlabitus, pulse palpable, no contracture. MUSCULOSKELETAL: Spine Normal, lumbosacral-tender and also bilateral shoulder discomfort, especially on movements,, slightly reduced range of motion, No swelling, no deformity, no clubbing, or cyanosis, the patient has no edema to bilateral lower extremities, dorsalis pedis pulses palpable bilaterally. NEUROLOGIC: The patient is awake, alert, oriented, responding to yes/no questions appropriately, moving all extremities, cranial nerve intact, normal strenght, normal power, normal coordination, normal gait. Allergies Coded Allergies: No Known Allergy (Unverified , 06/02/17) PMH Hypertension/chest pain resolved Obesity/neuropathy cause undetermined Social Hx No smoking no drinking, Family Hx Unknown Assessment/Plan Impression Hypertension poorly controlled Chest pain resolved Obesity Neuropathy both upper and lower extremities mild, Plan Patient education done, patient advised to lose weight, increase activity, Patient encouraged to see primary care physician, and follow with primary care for further workup, patient did not have initial workup for neuropathy, on detailed asking patient states that usually it is both hands and feet, but right now it is only tip of the fingers, so I explained that patient that if it persisted and it gets bad to talk to primary care physician for further workup, Patient also advised to control the diet control the calorie increase exercise and lose weight, Patient was discharged with the lisinopril 20 mg daily, I have increased to 40 mg now daily, and will check blood pressure either here or primary care physician in 2 weeks, Medications Home Meds Active Scripts Lisinopril* (Lisinopril*) 20 Mg Tablet, 20 MG PO DAILY, #30 TAB Prov:JUDITH BENNETT ELECTROLYSIS OPERATOR 06/03/17 Famotidine* (Famotidine*) 20 Mg Tablet, 20 MG PO Q12, #60 TAB Prov:JUDITH BENNETT ELECTROLYSIS OPERATOR 06/03/17 Discontinued Reported Medications Lisinopril* (Lisinopril*) 10 Mg Tablet, 10 MG PO DAILY, #30 TAB 06/02/17 [Cephalexin] No Conflict Check 04/13/17 [Triamcinolone] No Conflict Check 04/13/17 [Sulfamethoxazole] No Conflict Check 04/13/17 [[place]] No Conflict Check 04/13/17 [Lisinopril] No Conflict Check 04/13/17 FEDERICO LUNA MD Jun 08, 2017 15:18
== END 2017-06-08 16:56 | disposition home or self-care (01) ==
LOC: DCC 14:20
PROVIDERS: ATTEND Internal Medicine
DX: I10 Essential (primary) hypertension (principal); R07.9 Chest pain, unspecified; E66.9 Obesity, unspecified; G62.9 Polyneuropathy, unspecified

== ENCOUNTER 2017-06-26 14:42 | Outpatient (CLI) | payer OTHER ==
[~2017-06-26] VITALS: Ht 162.6 cm; Wt 100.5 kg
[~2017-06-26 14:42] MED LIST changes: -CEPHALEXIN; -LISI10TA2 PO; -LISINOPRIL; -NORCO; -SULFAMETHOXAZOLE; -TRIAMCINOLONE
[2017-06-26 14:55] VITALS: BP 146/70; PULSE 70; RESP 16; Ht 162.6 cm; Wt 100.5 kg
--- NOTE | 2017-06-26 15:21 | PN ---
Date/Time of Note Date/Time of Note DATE: 06/26/17 TIME: 15:18 Outpatient Progress Note Chief Complaint Hypertension/neuropathy/chest pain/obesity HPI Hypertension/no headache or dizziness, no local focal weakness, patient just ran out of the medication, Neuropathy/patient has neuropathy, patient on multivitamin, patient neuropathy slightly better, slightly improved, only in toes and the fingers, no difficulty in walking, Chest pain/patient was recently admitted with a chest pain, patient denies any more chest pain, patient stable, no chest pain, Obesity/no hypothyroidism, Review of Systems Const: No Fever, no chills, no Wt. loss, no Fatigue, normal appetite, no diaphoresis. Eyes: No pain, no discharge, no redness, no visual change, no foreign body. ENT: No pain, no bleeding, no congestion, no sore throat, no dysphagia, no discharge or rhinitis. Lymph: No adenopathy, no tender nodes, no lymphedema. Resp: No SOB, no cough, no sputum, no wheezing, no chest pain. CV: No chest pain, no palpitaions, no REID, no PND, no edema. GI: Normal appetite, no pain, no nausea, no vomiting, no diarrhea, no blood, no constipation. : No frequency, no urgency, no dysuria, no hematuria, no flank pain, no discharge, no bleeding. Musc: no back pain, no neck pain, no knee pain, no restricted ROM. Skin: No rash, no skin lesions, no erythema, no laceration, no bruising, no pruritus. Neuro: No VELARDE, no dizziness, no syncope, no seizure, no focal-weakness minimal numbness on toes and fingers improved significantly,. Endo: No polyuria, no polydypsia, no dry-skin, no temp-intolerance. Psych: No hallucinations, no depression, no anxiety, no suicidal ideation. Ext: No edema, no pain, no ulcer, no weakness. Physical Exam Vital Signs Date Time Temp Pulse Resp B/P Pulse Ox O2 Delivery O2 Flow Rate FiO2 06/26/17 14:55 98.2 70 16 146/70 97 Room Air General Appearance: A 61 year-old female who appears well-developed, well- nourished, in no acute distress slightly obese, HEENT: Head normocephalic, atraumatic. Pupils equal, round, reactive to light and accommodate. Sclerae are no jaundice. Nasal turbinates pink without erythema or nasal discharge. Mucous membranes pink and moist without lesions. Oropharynx clear without any exudate or discharge. NECK: Supple. Trachea midline, No thyromegaly, No cervical lymphadenopathy, No mass, No carotid bruits, No JVD, Carotid pulses 2+ bilaterally. PULMONARY: Clear to auscultaion bilaterally, No retractions, Chest expansion symmetric bilaterally, no rales, no ronchi, no dulness on percussion. CARDIAC: Normal SI and S2, Regular rate and rythm, no murmur, gallop, or rub. GASTROINTESTINAL: Abdomen is soft, non-tender, Non Rigid, No distention, Positive bowel sounds x4 quadrants, Liver normal. SKIN: Warm, dry, no rash, no bruise, no echmosis. EXTREMITIES: Bilateral lower extremities no edema, no phlabitus, pulse palpable , no contracture. MUSCULOSKELETAL: Spine Normal, Non-tender, Normal range of motion, No swelling, no deformity, no clubbing, or cyanosis, the patient has no edema to bilateral lower extremities, dorsalis pedis pulses palpable bilaterally. NEUROLOGIC: The patient is awake, alert, oriented, responding to yes/no questions appropriately, moving all extremities, cranial nerve intact, normal strenght, normal power, normal coordination, normal gait. Allergies Coded Allergies: No Known Allergy (Unverified , 06/02/17) PMH No change Social Hx No change Family Hx No change Assessment/Plan Impression Hypertension neuropathy improving Chest pain resolved Obesity improving Plan Patient education done, patient encouraged to increase activity, lose weight, control the blood pressure, patient running out of the blood pressure medication , Give patient lisinopril 40 mg daily #30 tablets and patient to follow with the primary care physician, Patient encouraged to follow the primary care physician increase activity lose weight, Medications Home Meds Active Scripts Lisinopril* (Lisinopril*) 20 Mg Tablet, 20 MG PO DAILY, #30 TAB Prov:JUDITH BENNETT NP 06/03/17 Famotidine* (Famotidine*) 20 Mg Tablet, 20 MG PO Q12, #60 TAB Prov:JUDITH BENNETT NP 06/03/17 FEDERICO LUNA MD Jun 26, 2017 15:21
== END 2017-06-26 17:00 | disposition home or self-care (01) ==
LOC: DCC 14:42
PROVIDERS: ATTEND Internal Medicine
DX: I10 Essential (primary) hypertension (principal); R07.9 Chest pain, unspecified; E66.9 Obesity, unspecified; G62.9 Polyneuropathy, unspecified

== ENCOUNTER → 2018-06-04 | Outpatient (CLI) | END | disposition home or self-care (01) ==